=== PATIENT | female | born 1980 | race African-American/Black ===

== ENCOUNTER 2024-12-07 02:36 | Inpatient (IN) | payer SELFPAY ==
[~2024-12-07] VITALS: Ht 162.6 cm; Wt 59.9 kg
[2024-12-07 02:40] VITALS: O2SAT 98
[2024-12-07] MEDS: HALOPERIDOL LACTATE 5MG/ML VIAL IM ONE (03:02)
[2024-12-07] MEDS: DIPHENHYDRAMINE 50MG/ML VIAL IM ONE (03:02)
[2024-12-07] MEDS: SODIUM CHLORIDE 0.9% 1,000 ML IV ONE (03:52)
[2024-12-07 03:57] LABS: MEAN PLATELET VOLUME 6.9 fl (7.4-10.4); PLATELET 641 x1000/uL (130-400); RED BLOOD CELL COUNT 1.91 mill/uL (4.2-5.4); RED CELL DISTRIBUTION WIDTH 14.2 % (11.6-14.6)
[2024-12-07 04:04] LABS: HEMATOCRIT. 19.4 % (36.0-48.0); HEMOGLOBIN. 6.3 g/dL (12.0-16.0)
[2024-12-07 04:12] LABS: CREATININE 1.3 mg/dL (0.6-1.0); ETHANOL BLOOD < 10 mg/dL (<10); UREA NITROGEN BLOOD 10 mg/dL (9-23)
[2024-12-07 04:13] LABS: ASPARTATE AMINOTRANSFERASE 31 IU/L (<34)
[2024-12-07 04:14] LABS: BILIRUBIN DIRECT 0.4 mg/dL (<=3.0); BILIRUBIN TOTAL 1.2 mg/dL (0.1-1.0); HCG SCREEN NEGATIVE; PROTEIN TOTAL 6.7 g/dL (6.0-8.3)
[2024-12-07 06:09] VITALS: BP 98/65; PULSE 80; RESP 20; TEMP 37.1408
[2024-12-07 06:34] LABS: LYMPHOCYTES % MANUAL 7.0 % (20.0-60.0); MONOCYTES % MANUAL 4.0 % (2.0-8.0); NEUTROPHILS % MANUAL 89.0 % (45.0-75.0)
[2024-12-07 06:37] LABS: PLATELET ESTIMATE SLIGHTLY INCREASED
[2024-12-07 08:00] VITALS: BP 100/61; PULSE 89; RESP 17; TEMP 36.1; O2SAT 100
[2024-12-07] MEDS: PANTOPRAZOLE SODIUM 40 MG/VIAL IV SCH (09:00)
[2024-12-07] MEDS: DEXT 5%/0.45% NACL KCL 20MEQ/L 1,000 ML IV ONE (09:33)
== END 2024-12-07 12:45 | disposition left against medical advice (07) | DRG 663 ==
LOC: ER 02:36 → 6WST 04:12 → EDBEDREQSVC 04:15 → EDBEDREQ 04:15 → EDBEDREQTM 04:15 → ENRESERV 04:26
PROVIDERS: ADMIT Internal Medicine; ATTEND Internal Medicine
DX: D64.9 Anemia, unspecified (principal); Z53.29 Procedure and treatment not carried out because of patient's decision for other reasons
CPT/HCPCS: 36415; 71045; 80048; 80076; 80307; 80320; 80329; 84703; 85025; 86850; 86900; 86920; 93005; 99291; A4606; J1200; J1630; J2060; G0480